=== PATIENT | female | born 1950 | race Caucasian/White ===

== ENCOUNTER 2018-04-17 09:17 | Day surgery (SDC) | payer MEDICARE, OTHER, SELFPAY ==
[2018-04-17 09:46] VITALS: BP 131/70; PULSE 61; RESP 16; TEMP 36.6; O2SAT 131; BMI 20.2
[2018-04-17] MEDS: SODIUM CHLORIDE 0.9% 1,000 ML 42 ML IV (10:00)
--- NOTE | 2018-04-17 10:26 | PM.HP.1 ---
History of Present Illness Date Patient Seen: 04/17/18 Time Patient Seen: 10:27 Chief complaint: [id number] COLONOSCOPY W/POSS BX Narrative: Screening colonoscopy. No other symptoms Patient History Medical History Glaucoma (Acute) Family & Social History Social History: household members friend(s) Meds Home Medications Medication Instructions Recorded Confirmed Type aspirin 81 mg PO QDAY #0 06/19/17 History Allergies Allergy/AdvReac Type Severity Reaction Status Date / Time iodine [IODINE] Allergy Unknown Unverified 04/17/18 09:44 Exam Vital Signs (past 8 hours): - 04/17/18 09:46 Temperature 97.8 F Pulse Rate 61 Respiratory Rate 16 Blood Pressure 131/70 Pulse Oximetry 131 H Oxygen Delivery Method Room Air Narrative Exam Narrative: Oropharynx free of lesion Chest clear to auscultation and percussion Cardiac exam reveals no S3 or murmur Assessment & Plan Plan: Assessment/Plan Narrative: Assessment: Need for screening colonoscopy with last 19-20 years ago Plan: Colonoscopy
[2018-04-17] MEDS: MIDAZOLAM 5 MG/5 ML VIAL IV (11:18)
[2018-04-17] MEDS: fentaNYL 250 MCG/5 ML INJ IV (11:19)
--- NOTE | 2018-04-17 11:22 | PM.OP.ENDO ---
Operative Date/Time/Diagnoses Date of procedure: 04/17/18 Time of procedure: 11:22 Pre-op diagnosis: See indication and findings Procedure & Clinicians Study performed: Screening colonoscopy Same procedure as scheduled: Yes Indications: Screening Surgeon: Ana Dee Procedure Notes Procedure in detail: Sedation: Fentanyl 100 mcg Versed 6 mg IV titration Total sedation time 18 min After informed consent was obtained the patient was placed in left lateral decubitus position. The video colonoscope was introduced to the rectum slowly advanced to the cecum. On slow withdrawal mucosa was carefully examined. Scope was removed. Patient tolerated procedure well. Blood loss none Complications none Findings 1. Normal colonoscopy to cecum Patient should have follow-up colonoscopy in 10 years.
[2018-04-17 11:40] VITALS: BP 131/70; PULSE 61; RESP 16; TEMP 36.6; O2SAT 100
--- NOTE | 2018-04-17 11:46 | SUR.PHASEII ---
copy of op report given to patient per Dr. Dee.
== END 2018-04-17 12:00 | disposition home or self-care (01) ==
PROVIDERS: PCP Physician Assistant; Visit Provider Internal Medicine Gastroenterology
PROC: 0DJD8ZZ Inspection of Lower Intestinal Tract, Via Natural or Artificial Opening Endoscopic (ICD-10-PCS; CPT 45378; principal; 2018-04-17 10:30)
DX: Z12.11 Encounter for screening for malignant neoplasm of colon (principal)
CPT/HCPCS: G0121; J2250; J3010